=== PATIENT | female | born 1955 | race Caucasian/White ===

== ENCOUNTER 2021-11-02 08:14 | Emergency (ER) | payer OTHER ==
[~2021-11-02] VITALS: Ht 152.4 cm; Wt 84.4 kg
[2021-11-02] MEDS ORDERED: LIDOCAINE HCL-MPF 1% 2ML VIAL ONE (08:35)
[2021-11-02] MEDS ORDERED: LIDOCAINE HCL 1% 20 ML VIAL INJ SCH (09:00)
[2021-11-02] MEDS ORDERED: NEOM28.35 TP (09:30)
[2021-11-02] MEDS ORDERED: TETANUS/DIPHTHERIA TOXOID [ADULT] 0.5 ML VIAL IM ONE ×2 (09:38→10:00)
[2021-11-02 10:08] VITALS: BP 158/85
== END 2021-11-02 10:09 | disposition home or self-care (01) ==
LOC: EDH 08:14
DX: L03.012 Cellulitis of left finger (principal); M19.90 Unspecified osteoarthritis, unspecified site; I10 Essential (primary) hypertension; Z88.0 Allergy status to penicillin; Z90.89 Acquired absence of other organs
CPT/HCPCS: 10060; 90471; 90714; 99283; J3490

== ENCOUNTER 2022-07-02 13:35 | Emergency (ER) | payer SELFPAY ==
[~2022-07-02] VITALS: Ht 215.9 cm; Wt 78.9 kg
[~2022-07-02 13:35] MED LIST: ATOR10TA69 PO; INSU10VI3 SQ
[2022-07-02] MEDS ORDERED: LIDOCAINE/PRILOCAINE CREAM 30 GM TUBE TP ONE (15:30)
[2022-07-02] MEDS ORDERED: LIDOCAINE/PRILOCAINE CREAM 5GM TUBE TP SCH (15:30)
[2022-07-02] MEDS ORDERED: LIDOCAINE HCL 2% VISCOUS 15 ML UDCUP ONE (15:31)
[2022-07-02] MEDS ORDERED: BACITRACIN 1 EACH PACKET TP ONE (17:01)
[2022-07-02 17:49] VITALS: BP 146/85
== END 2022-07-02 17:52 | disposition home or self-care (01) ==
LOC: EDH 13:35
DX: S01.81XD Laceration without foreign body of other part of head, subsequent encounter (principal); S01.21XD Laceration without foreign body of nose, subsequent encounter; E11.9 Type 2 diabetes mellitus without complications; E78.00 Pure hypercholesterolemia, unspecified; I10 Essential (primary) hypertension; Z79.4 Long term (current) use of insulin; Z79.899 Other long term (current) drug therapy; Z88.0 Allergy status to penicillin; X58.XXXD Exposure to other specified factors, subsequent encounter
CPT/HCPCS: 99281

== ENCOUNTER 2022-08-10 17:09 | Inpatient (IN) | payer OTHER ==
[~2022-08-10] VITALS: Ht 152.4 cm; Wt 75.9 kg
[2022-08-10 18:22] LABS: BASOPHILS % (AUTO) 0.2 % (0.0-5.0); HEMATOCRIT 40.7 % (36-48); LYMPHOCYTES % (AUTO) 16.3 % (21.0-51.0); MEAN CORPUSCULAR HEMOGLOBIN 30.6 pg (27.0-33.0); MEAN CORPUSCULAR HGB CONC 33.4 g/dL (32.0-36.0); MEAN CORPUSCULAR VOLUME 91.7 fL (79-99); MONOCYTES % (AUTO) 11.3 % (3.0-13.0); PLATELET COUNT (AUTO) 207 K/uL (130-400); RED BLOOD CELL COUNT(AUTO) 4.44 MIL/uL (4.00-5.50); RED CELL DISTRIBUTION WIDTH 11.6 % (11.0-15.5); WHITE BLOOD COUNT (AUTO) 4.4 K/uL (4.8-10.8)
[2022-08-10 18:30] LABS: CREATININE 1.5 mg/dL (0.5-1.5); POTASSIUM 5.8 mmol/L (3.5-5.1)
[2022-08-10 18:42] LABS: ALBUMIN 3.5 g/dL (3.5-5.0); TOTAL PROTEIN, SERUM 8.4 g/dL (6.0-8.3)
[2022-08-10 20:36] LABS: APPEARANCE,URINE CLEAR (CLEAR); BILIRUBIN,URINE SMALL mg/dL (NEGATIVE); COLOR,URINE YELLOW (YELLOW); GLUCOSE, URINE (UA) NEGATIVE (NEGATIVE); KETONES,URINE 40 mg/dL (NEGATIVE); LEUKOCYTE ESTERASE ,URINE TRACE Leu/uL (NEGATIVE); NITRATE,URINE NEGATIVE (NEGATIVE); OCCULT BLOOD,URINE NEGATIVE (NEGATIVE); PROTEIN,URINE 30 mg/dL (NEGATIVE); UROBILINOGEN,URINE 0.2 mg/dL (0.2-1.0)
[2022-08-10 20:49] LABS: BACTERIA,URINE FEW /HPF (None Seen); MUCUS,URINE RARE LPF (None Seen); RBC,URINE 0-1 /HPF (0-1); SQUAMOUS EPITHELIAL CELL,UR MOD /HPF (0-2); YEAST,URINE BUDDING FEW /HPF (None Seen)
[2022-08-10 21:23] LABS: ABG OXYGEN SATURATION 23.2 % (95.0-99.0); BASE EXCESS,VENOUS BLOOD GAS -4.7 (-2.0-3.0); HCO3,VENOUS BLOOD GAS 16.6 (21.0-28.0); PCO2,VENOUS BLOOD GAS 23 (32-45); PH,VENOUS BLOOD GAS 7.475 (7.350-7.450)
[2022-08-10] MEDS ORDERED: ONDANSETRON 4MG INJ IVP ONE (21:30)
[2022-08-10] MEDS ORDERED: 0.9%NACL 1000ML 1,000 ML IV ONE (21:30)
[2022-08-10] MEDS ORDERED: NA ZIRCON CYCLOSIL(LOKELMA 10GM) PO ONE (21:30)
[2022-08-10] MEDS ORDERED: IOHEXOL 350 MG/ML 100ML INFUS..BTL IV ONE (22:55)
[2022-08-11] MEDS ORDERED: AZITHROMYCIN 250 MG TABLET PO ONE
[2022-08-11] MEDS ORDERED: DEXAMETHASONE SOD PHOSPHATE 4 MG/ML 1ML VIAL IVP ONE
[2022-08-11] MEDS ORDERED: CEFTRIAXONE 1G VIAL IVP ONE
[2022-08-11] MEDS ORDERED: OSELTAMIVIR PHOSPHATE 75 MG CAP PO ONE (00:30)
[2022-08-11] MEDS ORDERED: IPRATROPIUM/ALBUTEROL SULFATE 3 ML SOLUTION IH PRN (02:00)
[2022-08-11 05:00] VITALS: BP 140/59
[2022-08-11 08:35] VITALS: BP 150/70
[2022-08-11] MEDS ORDERED: ENOXAPARIN SODIUM 40 MG/0.4 ML SYRINGE SQ SCH (09:00)
[2022-08-11] MEDS ORDERED: CEFTRIAXONE 1G VIAL IVP SCH (09:00)
[2022-08-11] MEDS: DEXTROSE 5 %-0.45 % NACL 1,000 ML IV SCH ×2 (09:13→21:45)
[2022-08-11] MEDS: AZITHROMYCIN 250 MG TABLET PO SCH (09:13)
[2022-08-11] MEDS: OSELTAMIVIR PHOSPHATE 75 MG CAP PO SCH ×2 (09:13→21:45)
[2022-08-11 12:30] VITALS: BP 135/72
[2022-08-11 16:23] VITALS: BP 116/66
[2022-08-11 20:00] VITALS: BP 116/66
[2022-08-12] VITALS: BP 147/87
[2022-08-12 04:00] VITALS: BP 152/71
[2022-08-12 05:36] LABS: HEMATOCRIT 35.2 % (36-48); MEAN CORPUSCULAR HEMOGLOBIN 30.2 pg (27.0-33.0); MEAN CORPUSCULAR HGB CONC 33.2 g/dL (32.0-36.0); RED BLOOD CELL COUNT(AUTO) 3.87 MIL/uL (4.00-5.50); RED CELL DISTRIBUTION WIDTH 11.7 % (11.0-15.5); WHITE BLOOD COUNT (AUTO) 4.2 K/uL (4.8-10.8)
[2022-08-12 06:08] LABS: ALBUMIN 3.2 g/dL (3.5-5.0); CREATININE 1.5 mg/dL (0.5-1.5); POTASSIUM 4.9 mmol/L (3.5-5.1); TOTAL PROTEIN, SERUM 7.5 g/dL (6.0-8.3)
[2022-08-12 08:00] VITALS: BP 130/84
[2022-08-12] MEDS: AZITHROMYCIN 250 MG TABLET PO SCH (11:54)
[2022-08-12] MEDS: OSELTAMIVIR PHOSPHATE 75 MG CAP PO SCH (11:54)
== END 2022-08-12 12:40 | disposition home or self-care (01) | DRG 177 ==
LOC: EDH 17:09 → EDHIP 17:10 → 3AH 08-11 05:00
PROVIDERS: ADMIT Internal Medicine; ATTEND Internal Medicine
DX: U07.1 COVID-19 (principal); K85.90 Acute pancreatitis without necrosis or infection, unspecified; J44.1 Chronic obstructive pulmonary disease with (acute) exacerbation; E86.0 Dehydration; J10.1 Influenza due to other identified influenza virus with other respiratory manifestations; E11.22 Type 2 diabetes mellitus with diabetic chronic kidney disease; E11.649 Type 2 diabetes mellitus with hypoglycemia without coma; E78.00 Pure hypercholesterolemia, unspecified; I12.9 Hypertensive chronic kidney disease with stage 1 through stage 4 chronic kidney disease, or unspecified chronic kidney disease; M19.90 Unspecified osteoarthritis, unspecified site; N18.9 Chronic kidney disease, unspecified; Z79.4 Long term (current) use of insulin
CPT/HCPCS: 36415; 36600; 71045; 74177; 80053; 81001; 82010; 82150; 82803; 82948; 83690; 84484; 85025; 85027; 87077; 87088; 87186; 87635; 87804; 93005; C9803; G0378; J0696; J1100; J1650; J2405; J7042; Q9967